=== PATIENT | female | born 1960 | race Caucasian/White ===

== ENCOUNTER 2024-03-28 09:50 | Day surgery (SDC) | payer OTHER ==
[2024-03-27 09:30] VITALS: BMI 25.8
[2024-03-28 11:00] VITALS: TEMP 96.2
[2024-03-28] MEDS: IV FLUID CONTINUATION 1,000 ML IV ONE (11:10)
[2024-03-28] MEDS: LACTATED RINGERS 1,000 ML IV SCH (11:10)
[2024-03-28] MEDS ORDERED: LIDOCAINE 1% INJ 10MG/ML (20 ML MDV) ONE (11:30)
[2024-03-28] MEDS ORDERED: PROPOFOL 10 MG/ML 20 ML VIAL IV ONE (11:30)
--- NOTE | 2024-03-28 11:46 | P.PCN ---
Date of Procedure: 03/28/24 Procedure(s) Performed: BRIEF HISTORY: Patient is a 63-year-old, pleasant, white female scheduled for an endoscopy as a part evaluation of chronic persistent nausea for the last 6 months duration.. She was started on Pepcid 20 mg twice daily and since then the symptoms are significantly improved. She denies any abdominal pain, heartburn, dysphagia. PROCEDURE PERFORMED: Esophagogastroduodenoscopy biopsy. PREOPERATIVE DIAGNOSIS: Chronic persistent nausea of 6 months duration. IV sedation per anesthesia. PROCEDURE: After informed consent was obtained, the patient was brought into the endoscopy unit. IV sedation was administered by Anesthesia under continuous monitoring. Initially the Olympus GIF-140 video endoscope was inserted into the mouth. Esophagus intubated without any difficulty. It was gradually advanced into the stomach and duodenum and carefully examined. The bulb and the second part of the duodenum appeared normal. These were done from the duodenum rule out celiac disease. The scope at this time was withdrawn to the stomach, adequately insufflated with air, and upon careful examination, mucosa of the antrum had antral gastritis and biopsies were done from this area. Mucosa, body, cardia and the fundus appeared normal. The scope was then withdrawn into the esophagus. Hiatal hernia noted. The GE junction was located at 39 cm from the incisors. There was short segment of Osullivan's esophagus with a tongue of Osullivan's appearing mucosa extending 5 mm proximal to the GE junction that was biopsied. The rest of the esophagus appeared normal. There were no erosions or ulcerations seen and the patient tolerated the procedure well. IMPRESSION: 1. Small hiatal hernia. 2. Short segment Osullivan's esophagus. 3. Antral gastritis RECOMMENDATIONS: The findings of this examination were discussed with the patient as well as her family. She was advised to follow with the biopsy results. The biopsy reveals evidence of Osullivan's esophagus, recommended repeat upper endoscopy in 3 years. Continue with Pepcid 20 mg daily and follow antireflux measures..
[2024-03-28] MEDS: IV FLUID CONTINUATION 800 ML IV ONE (11:48)
[2024-03-28 12:20] VITALS: RESP 16
[2024-03-28 12:22] VITALS: PULSE 87
[2024-03-28 12:55] VITALS: BP 157/72
== END 2024-03-28 12:47 | disposition home or self-care (01) ==
LOC: ORWHC2ENDO 09:50
PROVIDERS: ATTEND Internal Medicine Gastroenterology
DX: R11.0 Nausea
CPT/HCPCS: 43239; 88305; 88313